=== PATIENT | male | born 1960 | race Caucasian/White ===

== ENCOUNTER 2023-11-29 17:36 | Inpatient (IN) | payer OTHER ==
[2023-11-29] MEDS ORDERED: TENECTEPLASE 50 MG/10 ML VIAL IV ONE (18:15)
[2023-11-29 18:19] LABS: Absolute Lymphocytes (CBC) 1.4 K/uL (0.7-4.9); Lymphocytes % 20.5 % (15.3-44.8); MCV 88.9 fL (80-100); MPV 7.4 fL (7.6-11.3); Platelets 311 thou/uL (152-406); RBC Red Blood Cell Count 4.39 M/uL (4.33-5.43)
--- NOTE | 2023-11-29 18:27 | RAD REPORT ---
EXAM DESCRIPTION: CT - Ct Stroke Brain Wo Cont - 11/29/2023 6:05 pm CLINICAL HISTORY: STROKE ALERT CVA symptomology COMPARISON: <Comparisons> TECHNIQUE: All CT scans are performed using dose optimization technique as appropriate and may inclu de automated exposure control or mA/KV adjustment according to patient size. FINDINGS: No intracranial hemorrhage, hydrocephalus or extra-axial fluid collection.No areas of brai n edema or evidence of midline shift. The paranasal sinuses and mastoids are clear. The calvarium is intact. IMPRESSION: No acute intracranial abnormality. The findings were discussed with Dr. Molina in the ER On 11/29/2023 at 5:50 p.m. by telephone.
--- NOTE | 2023-11-29 18:28 | RAD REPORT ---
EXAM DESCRIPTION: CT - Head angio - 11/29/2023 6:03 pm CLINICAL HISTORY: right facial droop Headache, drowsiness, CVA symptomology COMPARISON: <Comparisons> TECHNIQUE: CT angiography of the head was performed with MIPs. All CT scans are performed using dose optimization technique as appropriate and may include automated exposure control or mA/KV adjustment according to patient size. FINDINGS: No evidence of large vessel occlusion. No evidence of aneurysm is detected. No flow-limiti ng stenosis or vascular malformation identified. Antegrade flow is seen in the vertebral arteries. The right vertebral artery is mildly dominant. The visualized dural venous sinuses are patent. IMPRESSION: No significant flow abnormality is detected.
--- NOTE | 2023-11-29 18:31 | RAD REPORT ---
EXAM DESCRIPTION: CT - Neck Angio - 11/29/2023 6:03 pm CLINICAL HISTORY: right facial droop Headache, drowsiness, CVA symptomology COMPARISON: <Comparisons> TECHNIQUE: CT angiography of the neck vessels was performed with MIPs. All CT scans are performed using dose optimization technique as appropriate and may include automated exposure control or mA/KV adjustment according to patient size. FINDINGS: A left aortic arch is identified with normal three vessel configuration of the great vesse ls. No significant flow abnormality is seen of the common carotid bilaterally. Mild soft plaque is present left carotid bulb resulting in mild narrowing estimated at 0-49% based on NASCET criteria. Elsewhere, no significant flow abnormality detected. Normal flow is seen within both vertebral arteries. The right vertebral artery is mildly dominant. IMPRESSION: Mild narrowing of the left carotid bulb caused by soft plaquing. NASCET criteria used. Mild 0-49% stenosis Moderate 50-69% stenosis Severe 70-99% stenosis
--- NOTE | 2023-11-29 18:31 | RAD REPORT ---
EXAM DESCRIPTION: RAD - Chest Single View - 11/29/2023 6:04 pm CLINICAL HISTORY: right facial droop Chest pain. COMPARISON: <Comparisons> FINDINGS: Portable technique limits examination quality. The lungs are grossly clear. The heart is normal in size. No displaced fractures. IMPRESSION: No acute intrathoracic process suspected.
[2023-11-29 18:35] LABS: Potassium 4.2 mEq/L (3.5-5.1); Troponin High Sensitivity 6.7 pg/mL (<58.9)
[2023-11-29 18:38] LABS: Protime INR 1.03
--- NOTE | 2023-11-29 18:56 | ER ---
Nurse's Notes [facility] [place] Name: Chance Saldana Age: 63 yrs Sex: Male : 1960 Arrival Date: 11/29/2023 Time: 17:36 Bed 2 Private MD: Diagnosis: Acute CVA Presentation: 11/29 17:40 Chief complaint: Patient states: Right facial droop and decreased sensation to right aa5 side of face. Hx of previous CVA. 17:40 Onset of symptoms was November 29, 2023 at 16:15. aa5 17:40 Acuity: KERRY 2 aa5 17:40 Method Of Arrival: Wheelchair aa5 18:00 Coronavirus screen: At this time, the client does not indicate any symptoms associated aa5 with coronavirus-19. Ebola Screen: Patient denies travel to an Ebola-affected area in the 21 days before illness onset. An acute neurological deficit is present. Pre-hospital glucose is not applicable to this patient. Initial Sepsis Screen: Does the patient meet any 2 criteria? No. Patient's initial sepsis screen is negative. Does the patient have a suspected source of infection? No. Patient's initial sepsis screen is negative. 18:00 Risk Assessment: Do you want to hurt yourself or someone else? Patient reports no aa5 desire to harm self or others. Triage Assessment: 22:08 The onset of the patients symptoms was more than three but less than six hours ago. tl4 General: Appears in no apparent distress. Behavior is calm, cooperative. 22:09 The onset of the patients symptoms was November 29, 2023 at 14:00. Neuro: Reports tl4 numbness in right side of face. Stroke Activation: Symptom onset < 3 hours Physician: Stroke Attending; Name: ; Notified At: ; Arrived At: Physician: Chief Stroke Resident; Name: ; Notified At: ; Arrived At: Physician: Stroke Resident; Name: ; Notified At: ; Arrived At: Physician: ED Attending; Name: ; Notified At: ; Arrived At: Physician: ED Resident; Name: ; Notified At: ; Arrived At: Historical: - Allergies: 18:00 KETAMINE; aa5 18:00 cats/dogs; aa5 18:00 OPIOID ANALGESICS; aa5 - Home Meds: 22:53 Plavix 75 mg oral tablet 1 tab daily [Active]; Prednisone 7.5 mg Oral daily [Active]; tl4 tamsulosin 0.4 mg oral capsule 1 cap daily [Active]; cevimeline 30 mg oral capsule 1 cap 3 times per day [Active]; Lipitor 40 mg Oral tablet 1 tab every day at bedtime [Active]; Prilosec 40 mg Oral 2 times per day [Active]; Wellbutrin SR 150 mg Oral tablet, sustained-release 12 hr 1 tab 2 times per day [Active]; Humalog U-100 Insulin 100 unit/mL Sub-Q cartridge every time pt eats [Active]; Lantus U-100 Insulin 100 unit/mL Sub-Q solution 28 units at bedtime [Active]; - PMHx: 18:00 CVA; Type 1 diabetes mellitus; stage 4 melanoma; 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 - Social history:: Smoking status: Patient denies any tobacco usage or history of. - Family history:: not pertinent. Screenin:15 [facility] ED Fall Risk Assessment (Adult) History of falling in the last 3 months, aa5 including since admission No falls in past 3 months (0 pts) Confusion or Disorientation No (0 pts) Intoxicated or Sedated No (0 pts) Impaired Gait No (0 pts) Mobility Assist Device Used No (0 pt) Altered Elimination No (0 pt) Score/Fall Risk Level 0 - 2 = Low Risk Oriented to surroundings, Maintained a safe environment, Educated pt \T\ family on fall prevention, incl call for assistance when getting out of bed. Abuse screen: Denies threats or abuse. Nutritional screening: No deficits noted. Tuberculosis screening: No symptoms or risk factors identified. 19:35 Melvin Swallow Protocol Brief Cognitive Screen What is your name? Normal, Where are you rv right now? Normal, What year is it? Normal. Oral Mechanism Examination Facial Symmetry: Normal, Motion: Normal, Lip Closure: Normal, Oral Mechanism Result: Normal. 3 oz Water Swallow Challenge: Pt able to drink all water without stopping, coughing, choking or throat clearing: Yes Result: PASS Notified: Alexandro Molina MD. Assessment: 17:40 Reassessment: Code stroke called, transported pt via wheelchair to CT scan,accompanied aa5 [address] Dr[address] Molina and me. . 17:40 General: Appears comfortable, Behavior is calm, cooperative. Pain: Denies pain. Neuro: aa5 Level of Consciousness is awake, alert, obeys commands, Oriented to person, place, time, situation, Mobile Nurse are equal bilaterally Moves all extremities. Gait is steady, Speech is normal, Facial droop on right, Pupils are PERRLA. Cardiovascular: Heart tones S1 S2 present Rhythm is regular. Respiratory: Airway is patent Respiratory effort is even, unlabored, Respiratory pattern is regular, symmetrical. GI: Abdomen is round non-distended, Abd is soft and non tender X 4 quads. Patient currently denies nausea, vomiting. : No signs and/or symptoms were reported regarding the genitourinary system. EENT: No signs and/or symptoms were reported regarding the EENT system. Derm: Skin is pink, warm \T\ dry. Musculoskeletal: Range of motion: intact in all extremities. 17:40 VAN Scoring: Arm Drift: Patients demonstrates NO arm weakness. Patient is VAN Negative. aa5 Visual Disturbance: No visual disturbance noted. Aphasia: No aphasia noted. Neglect: No neglect noted. 18:00 Reassessment: Pt back from CT scan, placed on stretcher in ER 2 . aa5 18:15 TNKase (Tenecteplase) Screening: Indications: No evidence of intracranial hemorrhage or aa5 CT of head and no evidence of peripheral hemorrhage or recent CVA: Yes. Consent for thrombolytic therapy: Yes. 18:15 Neuro: Level of Consciousness is awake, alert, obeys commands, Oriented to person, aa5 place, time, situation, Mobile Nurse are equal bilaterally Moves all extremities. Speech is normal, Facial droop on right, Pupils are PERRLA. 18:50 Melvin Swallow Protocol Brief Cognitive Screen What is your name? Normal, Where are you aa5 right now? Normal, What year is it? Normal. Oral Mechanism Examination Facial Symmetry: Normal, Motion: Normal, Lip Closure: Normal, Oral Mechanism Result: Normal. 3 oz Water Swallow Challenge: Pt able to drink all water without stopping, coughing, choking or throat clearing: Yes Result: JOSR SELLERS Notified: Alexandro Molina MD. 19:05 Reassessment: No changes from previously documented assessment. Patient and/or family tl4 updated on plan of care and expected duration. Pain level reassessed. Patient is alert, oriented x 3, equal unlabored respirations, skin warm/dry/pink. Patient denies pain at this time. Vital Signs: 18:00 BP 148 / 87; Pulse 81; Resp 16 S; Temp 98(TE); Pulse Ox 99% on R/A; aa5 18:14 Weight 68.95 kg (M); aa5 18:22 BP 152 / 96; Pulse 78; Resp 18 S; Pulse Ox 99% on R/A; aa5 18:28 BP 135 / 94; Pulse 75; Resp 16 S; Pulse Ox 99% on R/A; aa5 18:33 BP 130 / 90; Pulse 78; Resp 16 S; Pulse Ox 98% on R/A; aa5 18:38 BP 129 / 87; Pulse 79; Resp 16 S; Pulse Ox 98% on R/A; aa5 18:43 BP 139 / 96; Pulse 83; Resp 18 S; Pulse Ox 98% on R/A; aa5 18:48 BP 115 / 76; Pulse 73; Resp 18 S; Pulse Ox 98% on R/A; aa5 18:53 BP 127 / 86; Pulse 77; Resp 18 S; Pulse Ox 100% on R/A; aa5 19:08 BP 141 / 89; Pulse 75; Resp 14; Pulse Ox 99% on R/A; tl4 19:23 BP 132 / 93; Pulse 73; Resp 14; Pulse Ox 99% on R/A; tl4 19:38 BP 129 / 89; Pulse 76; Resp 14; Pulse Ox 100% on R/A; tl4 19:53 BP 126 / 70; Pulse 80; Resp 16; Pulse Ox 98% on R/A; tl4 20:08 BP 131 / 88; Pulse 73; Resp 14; Pulse Ox 100% on R/A; Pain 0/10; tl4 20:23 BP 139 / 76; Pulse 79; Resp 18; Pulse Ox 97% on R/A; Pain 0/10; tl4 20:53 BP 126 / 86; Pulse 75; Resp 12; Pulse Ox 98% on R/A; Pain 8/10; tl4 21:23 BP 112 / 76; Pulse 78; Resp 12; Pulse Ox 97% on R/A; Pain 8/10; tl4 21:53 BP 109 / 69; Pulse 77; Resp 19; Pulse Ox 97% on R/A; tl4 22:23 BP 112 / 71; Pulse 78; Resp 16; Pulse Ox 97% on R/A; Pain 6/10; tl4 22:53 BP 123 / 68; Pulse 71; Resp 19; Pulse Ox 97% on R/A; Pain 6/10; tl4 23:23 BP 111 / 81; Pulse 79; Resp 18; Pulse Ox 97% on R/A; Pain 6/10; tl4 20:08 Pain Scale: Adult tl4 20:23 Pain Scale: Adult tl4 20:53 Pain Scale: Adult tl4 21:23 Pain Scale: Adult tl4 22:23 Pain Scale: Adult tl4 22:53 Pain Scale: Adult tl4 23:23 Pain Scale: Adult tl4 NIH Stroke Scale Scores: 17:40 NIHSS Score: 3 aa5 18:50 NIHSS Score: 3 aa5 19:08 NIHSS Score: 3 tl4 ED Course: 17:40 Patient arrived in ED. aa5 17:40 Arm band placed on. aa5 17:43 Triage completed. aa5 17:50 Alexandro Molina MD is Attending Physician. rt 17:50 Inserted saline lock: 22 gauge in right antecubital area, using aseptic technique. aa5 18:00 Placed in gown. Bed in low position. Call light in reach. Side rails up X2. aa5 18:00 Client placed on continuous cardiac and pulse oximetry monitoring. NIBP monitoring aa5 applied. 18:04 CT Stroke Brain w/o Contrast In Process Unspecified. EDMS 18:04 CT Head Angio In Process Unspecified. EDMS 18:04 CT Neck Angio In Process Unspecified. EDMS 18:06 Stroke CXR 1 View In Process Unspecified. EDMS 18:08 Initial lab(s) drawn, by me, sent to lab. Inserted saline lock: 20 gauge in left aa5 antecubital area, using aseptic technique. Blood collected. 18:27 EKG done, by ED staff, reviewed by Alexandro Molina MD. em1 18:55 Report given to Sd Luna RN. aa5 18:56 Mj Fisher MD is Hospitalizing Provider. rt 19:35 No provider procedures requiring assistance completed. tl4 19:46 Provided Education on: ED process. tl4 22:10 Patient admitted, IV remains in place. tl4 Administered Medications: 18:23 Drug: TNK FOR STROKE - Tenecteplase IV 0.25 mg/kg IV at per protocol once; MAX aa5 DOSE 25 mg, IVP over 5 seconds {Co-Signature: tl4 (Sd Adams).} {Note: given 17mg .} Route: IV; Rate: per protocol; Site: left antecubital; Medication: 19:35 VIS not applicable for this client. tl4 Point of Care Testing: Blood Glucose: 18:15 Blood Glucose: 245 mg/dL; aa5 Ranges: Outcome: 18:56 Decision to Hospitalize by Provider. rt 23:49 Admitted to ICU accompanied by nurse, via wheelchair, room 4, on monitor, with chart, tl4 Report called to Sofia Bhatia rn 23:49 Condition: good 23:49 Instructed on the need for admit, 23:50 Patient left the ED. rv NIH Stroke Scale - NIH Stroke Score Date: 11/29/2023 Time: 17:40 Total Score = 3 10. Dysarthria (speech clarity - read or repeat words) - 0(Normal) 11. Extinction and Inattention (visual/tactile/auditory/spatial/personal) - 0(No abnormality) 1a. Level of Consciousness (LOC) - 0(Alert) 1b. Level of Consciousness (LOC) (Month \T\ Age) - 0(Both) 1c. LOC Commands (Open \T\ Closes Eyes/Front Of House Manager) - 0(Both) 2. Best Gaze (Lateral Gaze Paresis) - 0(Normal) 3. Visual Field Loss - 0(No visual loss) 4. Facial Palsy - 2(Partial paralysis) 5a. Left Arm: Motor (10-second hold) - 0(No drift) 5b. Right Arm: Motor (10-second hold) - 0(No drift) 6a. Left Leg: Motor (5-second hold - always test supine) - 0(No drift) 6b. Right Leg: Motor (5-second hold - always test supine) - 0(No drift) 7. Limb Ataxia (finger/nose \T\ heel/king - test with eyes open) - 0(Absent) 8. Sensory Loss (pinprick arms/legs/face) - 1(Mild to moderate loss) 9. Best Language: Aphasia (description/naming/reading) - 0(No aphasia) Initials: aa5 NIH Stroke Scale - NIH Stroke Score Date: 11/29/2023 Time: 18:50 Total Score = 3 10. Dysarthria (speech clarity - read or repeat words) - 0(Normal) 11. Extinction and Inattention (visual/tactile/auditory/spatial/personal) - 0(No abnormality) 1a. Level of Consciousness (LOC) - 0(Alert) 1b. Level of Consciousness (LOC) (Month \T\ Age) - 0(Both) 1c. LOC Commands (Open \T\ Closes Eyes/Front Of House Manager) - 0(Both) 2. Best Gaze (Lateral Gaze Paresis) - 0(Normal) 3. Visual Field Loss - 0(No visual loss) 4. Facial Palsy - 2(Partial paralysis) 5a. Left Arm: Motor (10-second hold) - 0(No drift) 5b. Right Arm: Motor (10-second hold) - 0(No drift) 6a. Left Leg: Motor (5-second hold - always test supine) - 0(No drift) 6b. Right Leg: Motor (5-second hold - always test supine) - 0(No drift) 7. Limb Ataxia (finger/nose \T\ heel/king - test with eyes open) - 0(Absent) 8. Sensory Loss (pinprick arms/legs/face) - 1(Mild to moderate loss) 9. Best Language: Aphasia (description/naming/reading) - 0(No aphasia) Initials: aa5 NIH Stroke Scale - NIH Stroke Score Date: 11/29/2023 Time: 19:08 Total Score = 3 10. Dysarthria (speech clarity - read or repeat words) - 0(Normal) 11. Extinction and Inattention (visual/tactile/auditory/spatial/personal) - 0(No abnormality) 1a. Level of Consciousness (LOC) - 0(Alert) 1b. Level of Consciousness (LOC) (Month \T\ Age) - 0(Both) 1c. LOC Commands (Open \T\ Closes Eyes/Front Of House Manager) - 0(Both) 2. Best Gaze (Lateral Gaze Paresis) - 0(Normal) 3. Visual Field Loss - 0(No visual loss) 4. Facial Palsy - 1(Minor Paralysis) 5a. Left Arm: Motor (10-second hold) - 0(No drift) 5b. Right Arm: Motor (10-second hold) - 0(No drift) 6a. Left Leg: Motor (5-second hold - always test supine) - 0(No drift) 6b. Right Leg: Motor (5-second hold - always test supine) - 0(No drift) 7. Limb Ataxia (finger/nose \T\ heel/king - test with eyes open) - 0(Absent) 8. Sensory Loss (pinprick arms/legs/face) - 2(Severe to total loss) 9. Best Language: Aphasia (description/naming/reading) - 0(No aphasia) Initials: tl4 Signatures: Dispatcher [employer] EDDenzel Griffin em1 Tammi Schwarz, RN RN aa5 Veto Cedeno RN RN rv Alexandro Molina MD MD rt Logdahl, Sd tl4 Logdahl, Sd tl4 Corrections: (The following items were deleted from the chart) 18:38 17:40 Onset of symptoms was November 29, 2023 aa5 aa5 19:34 19:26 Melvin Swallow Protocol Exclusion Criteria: Brief Cognitive Screen tl4 tl4 19:34 19:31 Melvin Swallow Protocol Exclusion Criteria: tl4 tl4 23:05 18:03 Home Meds: Plavix Oral; aa5 tl4 23:57 23:49 Admitted to ICU accompanied by nurse, via wheelchair, room 4, on monitor, tl4 with chart, Report called to lashae subramanian rv
--- NOTE | 2023-11-29 18:56 | EDPHYS ---
Physician Documentation [facility] Name: Chance Saldana Age: 63 yrs Sex: Male : 1960 Arrival Date: 11/29/2023 Time: 17:36 Bed 2 Private MD: ED Physician Alexandro Molina HPI: 11/29 18:57 This 63 yrs old Male presents to ER via Wheelchair with complaints of Facial Droop. rt 18:57 Patient presents to the ED with concerns for acute CVA. He reports having a right-sided rt facial droop and right-sided numbness on his face. Reports mild numbness on his right arm. Denies other numbness, weakness. Patient had a brief episode of speech disturbance that has resolved. These are similar symptoms to when he had a prior stroke about 3 years ago. The patient first noticed the symptoms about 2 hours ago, however, his last known normal was 2 PM. Denies other acute complaints at this time, symptoms are moderate severity, no other aggravating or alleviating factors.. Historical: - Allergies: 18:00 KETAMINE; aa5 18:00 cats/dogs; aa5 18:00 OPIOID ANALGESICS; aa5 - Home Meds: 22:53 Plavix 75 mg oral tablet 1 tab daily [Active]; Prednisone 7.5 mg Oral daily [Active]; tl4 tamsulosin 0.4 mg oral capsule 1 cap daily [Active]; cevimeline 30 mg oral capsule 1 cap 3 times per day [Active]; Lipitor 40 mg Oral tablet 1 tab every day at bedtime [Active]; Prilosec 40 mg Oral 2 times per day [Active]; Wellbutrin SR 150 mg Oral tablet, sustained-release 12 hr 1 tab 2 times per day [Active]; Humalog U-100 Insulin 100 unit/mL Sub-Q cartridge every time pt eats [Active]; Lantus U-100 Insulin 100 unit/mL Sub-Q solution 28 units at bedtime [Active]; - PMHx: 18:00 CVA; Type 1 diabetes mellitus; stage 4 melanoma; 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 - Social history:: Smoking status: Patient denies any tobacco usage or history of. - Family history:: not pertinent. ROS: 18:57 Constitutional: Negative for fever, chills, and weight loss, Cardiovascular: Negative rt for chest pain, palpitations, and edema, Respiratory: Negative for shortness of breath, cough, wheezing, and pleuritic chest pain, Abdomen/GI: Negative for abdominal pain, nausea, vomiting, diarrhea, and constipation, MS/Extremity: Negative for injury and deformity, Skin: Negative for injury, rash, and discoloration, Psych: Negative for depression, anxiety, suicide ideation, homicidal ideation, and hallucinations, 18:57 Neuro: Positive for numbness, tingling, Exam: 18:57 Constitutional: This is a well developed, well nourished patient who is awake, alert, rt and in no acute distress. Head/Face: Normocephalic, atraumatic. Chest/axilla: Normal chest wall appearance and motion. Nontender with no deformity. No lesions are appreciated. Cardiovascular: Regular rate and rhythm with a normal S1 and S2. No gallops, murmurs, or rubs. Normal PMI, no JVD. No pulse deficits. Respiratory: Lungs have equal breath sounds bilaterally, clear to auscultation and percussion. No rales, rhonchi or wheezes noted. No increased work of breathing, no retractions or nasal flaring. Abdomen/GI: Soft, non-tender, with normal bowel sounds. No distension or tympany. No guarding or rebound. No evidence of tenderness throughout. Skin: Warm, dry with normal turgor. Normal color with no rashes, no lesions, and no evidence of cellulitis. MS/ Extremity: Pulses equal, no cyanosis. Neurovascular intact. Full, normal range of motion. Psych: Awake, alert, with orientation to person, place and time. Behavior, mood, and affect are within normal limits. 18:57 ECG was reviewed by the Attending Physician. 18:57 Neuro: Speech normal, right-sided facial droop sparing the forehead, right-sided numbness on the face, right arm, strength and sensation otherwise intact, Vital Signs: 18:00 BP 148 / 87; Pulse 81; Resp 16 S; Temp 98(TE); Pulse Ox 99% on R/A; aa5 18:14 Weight 68.95 kg (M); aa5 18:22 BP 152 / 96; Pulse 78; Resp 18 S; Pulse Ox 99% on R/A; aa5 18:28 BP 135 / 94; Pulse 75; Resp 16 S; Pulse Ox 99% on R/A; aa5 18:33 BP 130 / 90; Pulse 78; Resp 16 S; Pulse Ox 98% on R/A; aa5 18:38 BP 129 / 87; Pulse 79; Resp 16 S; Pulse Ox 98% on R/A; aa5 18:43 BP 139 / 96; Pulse 83; Resp 18 S; Pulse Ox 98% on R/A; aa5 18:48 BP 115 / 76; Pulse 73; Resp 18 S; Pulse Ox 98% on R/A; aa5 18:53 BP 127 / 86; Pulse 77; Resp 18 S; Pulse Ox 100% on R/A; aa5 19:08 BP 141 / 89; Pulse 75; Resp 14; Pulse Ox 99% on R/A; tl4 19:23 BP 132 / 93; Pulse 73; Resp 14; Pulse Ox 99% on R/A; tl4 19:38 BP 129 / 89; Pulse 76; Resp 14; Pulse Ox 100% on R/A; tl4 19:53 BP 126 / 70; Pulse 80; Resp 16; Pulse Ox 98% on R/A; tl4 20:08 BP 131 / 88; Pulse 73; Resp 14; Pulse Ox 100% on R/A; Pain 0/10; tl4 20:23 BP 139 / 76; Pulse 79; Resp 18; Pulse Ox 97% on R/A; Pain 0/10; tl4 20:53 BP 126 / 86; Pulse 75; Resp 12; Pulse Ox 98% on R/A; Pain 8/10; tl4 21:23 BP 112 / 76; Pulse 78; Resp 12; Pulse Ox 97% on R/A; Pain 8/10; tl4 21:53 BP 109 / 69; Pulse 77; Resp 19; Pulse Ox 97% on R/A; tl4 22:23 BP 112 / 71; Pulse 78; Resp 16; Pulse Ox 97% on R/A; Pain 6/10; tl4 22:53 BP 123 / 68; Pulse 71; Resp 19; Pulse Ox 97% on R/A; Pain 6/10; tl4 23:23 BP 111 / 81; Pulse 79; Resp 18; Pulse Ox 97% on R/A; Pain 6/10; tl4 20:08 Pain Scale: Adult tl4 20:23 Pain Scale: Adult tl4 20:53 Pain Scale: Adult tl4 21:23 Pain Scale: Adult tl4 22:23 Pain Scale: Adult tl4 22:53 Pain Scale: Adult tl4 23:23 Pain Scale: Adult tl4 NIH Stroke Scale Scores: 17:40 NIHSS Score: 3 aa5 18:50 NIHSS Score: 3 aa5 19:08 NIHSS Score: 3 tl4 MDM: 17:50 Patient medically screened. rt 18:57 Data reviewed: vital signs, nurses notes, lab test result(s), EKG, radiologic studies. rt Consideration of Admission/Observation Patient was admitted/placed on observation. Management of patient was discussed with the following: Hospitalist: Agrees to admit. I considered the following discharge prescriptions or medication management in the emergency department Medications were administered in the Emergency Department. See MAR. Independent interpretation of the following test(s) in the Emergency Department CT Scan: My interpretation is No intracranial hemorrhage seen on interpretation of CT scan images. Care significantly affected by the following chronic conditions: Diabetes. Counseling: I had a detailed discussion with the patient and/or guardian regarding the historical points, exam findings, and any diagnostic results supporting the discharge/admit diagnosis, lab results, radiology results, the need for further work-up and treatment in the hospital. Response to treatment: the patient's symptoms have mildly improved after treatment. 11/29 17:44 Order name: Basic Metabolic Panel [facility] 11/29 17:44 Order name: CBC with Diff [facility] 11/29 17:44 Order name: High Sensitivity Troponin [facility] 11/29 17:44 Order name: Protime (+inr) [facility] 11/29 17:44 Order name: Ptt, Activated [facility] 11/29 18:48 Order name: glucometer results - FOR PT WITH NO ID [facility] 11/29 19:03 Order name: Glucose, Ancillary Testing [facility] 11/29 19:25 Order name: CREATININE WHOLE BLOOD [facility] 11/29 20:28 Order name: Basic Metabolic Panel [facility] 11/29 20:28 Order name: Basic Metabolic Panel [facility] 11/29 20:28 Order name: CBC with Automated Diff [facility] 11/29 20:28 Order name: CBC with Automated Diff [facility] 11/29 20:28 Order name: Lipid Profile [facility] 11/29 20:28 Order name: Lipid Profile [facility] 11/29 17:44 Order name: CT Stroke Brain w/o Contrast; Complete Time: 18:32 11/29 17:44 Order name: Stroke CXR 1 View; Complete Time: 18:32 11/29 17:52 Order name: CT Head Angio; Complete Time: 18:32 11/29 17:52 Order name: CT Neck Angio; Complete Time: 18:32 11/29 17:44 Order name: EKG; Complete Time: 17:44 11/29 17:44 Order name: Accucheck; Complete Time: 18:26 11/29 17:44 Order name: Cardiac monitoring; Complete Time: 18:13 11/29 17:44 Order name: EKG - Nurse/Tech; Complete Time: 18:13 11/29 17:44 Order name: IV Saline Lock; Complete Time: 18:13 11/29 17:44 Order name: Labs collected and sent; Complete Time: 18:13 11/29 17:44 Order name: NPO; Complete Time: 18:14 11/29 17:44 Order name: O2 Per Protocol; Complete Time: 18:14 11/29 17:44 Order name: O2 Sat Monitoring; Complete Time: 18:26 11/29 17:44 Order name: Stroke Swallow Screen; Complete Time: 18:58 aa5 EC:57 Rate is 78 beats/min. Rhythm is regular, Normal Sinus Rhythm with No ectopy. QRS [place] rt is Normal. AR interval is normal. QRS interval is normal. QT interval is normal. No Q waves. T waves are Normal. No ST changes noted. Interpreted by me. Administered Medications: 18:23 Drug: TNK FOR STROKE - Tenecteplase IV 0.25 mg/kg IV at per protocol once; MAX aa5 DOSE 25 mg, IVP over 5 seconds {Co-Signature: tl4 (Sd Adams).} {Note: given 17mg .} Route: IV; Rate: per protocol; Site: left antecubital; Point of Care Testing: Blood Glucose: 18: Blood Glucose: 245 mg/dL; aa5 Ranges: Critical Glucose Levels:Adult <50 mg/dl or >400 mg/dl <40 mg/dl or >180 mg/dl Disposition Summary: 11/29/23 18:56 Hospitalization Ordered Notes: Hospitalization Status: Inpatient Admission rt Provider: Mj Fisher rt Location: Intensive Care Unit rt Condition: Fair rt Problem: new rt Symptoms: have improved rt Bed/Room Type: Standard rt Room Assignment: 4-(11/29/23 23:34) rv Diagnosis - Acute CVA rt Forms: - Medication Reconciliation Form rt - SBAR form rt - Leadership Thank You Letter rt Critical care time excluding procedures: 19:06 Critical care time: Bedside Care: 30 minutes, Consultation: 5 minutes. Total time: 35 rt minutes NIH Stroke Scale - NIH Stroke Score Date: 11/29/2023 Time: 17:40 Total Score = 3 10. Dysarthria (speech clarity - read or repeat words) - 0(Normal) 11. Extinction and Inattention (visual/tactile/auditory/spatial/personal) - 0(No abnormality) 1a. Level of Consciousness (LOC) - 0(Alert) 1b. Level of Consciousness (LOC) (Month \T\ Age) - 0(Both) 1c. LOC Commands (Open \T\ Closes Eyes/Fiber Optics Engineer) - 0(Both) 2. Best Gaze (Lateral Gaze Paresis) - 0(Normal) 3. Visual Field Loss - 0(No visual loss) 4. Facial Palsy - 2(Partial paralysis) 5a. Left Arm: Motor (10-second hold) - 0(No drift) 5b. Right Arm: Motor (10-second hold) - 0(No drift) 6a. Left Leg: Motor (5-second hold - always test supine) - 0(No drift) 6b. Right Leg: Motor (5-second hold - always test supine) - 0(No drift) 7. Limb Ataxia (finger/nose \T\ heel/king - test with eyes open) - 0(Absent) 8. Sensory Loss (pinprick arms/legs/face) - 1(Mild to moderate loss) 9. Best Language: Aphasia (description/naming/reading) - 0(No aphasia) Initials: aa5 NIH Stroke Scale - NIH Stroke Score Date: 11/29/2023 Time: 18:50 Total Score = 3 10. Dysarthria (speech clarity - read or repeat words) - 0(Normal) 11. Extinction and Inattention (visual/tactile/auditory/spatial/personal) - 0(No abnormality) 1a. Level of Consciousness (LOC) - 0(Alert) 1b. Level of Consciousness (LOC) (Month \T\ Age) - 0(Both) 1c. LOC Commands (Open \T\ Closes Eyes/Fiber Optics Engineer) - 0(Both) 2. Best Gaze (Lateral Gaze Paresis) - 0(Normal) 3. Visual Field Loss - 0(No visual loss) 4. Facial Palsy - 2(Partial paralysis) 5a. Left Arm: Motor (10-second hold) - 0(No drift) 5b. Right Arm: Motor (10-second hold) - 0(No drift) 6a. Left Leg: Motor (5-second hold - always test supine) - 0(No drift) 6b. Right Leg: Motor (5-second hold - always test supine) - 0(No drift) 7. Limb Ataxia (finger/nose \T\ heel/king - test with eyes open) - 0(Absent) 8. Sensory Loss (pinprick arms/legs/face) - 1(Mild to moderate loss) 9. Best Language: Aphasia (description/naming/reading) - 0(No aphasia) Initials: aa5 NIH Stroke Scale - NIH Stroke Score Date: 11/29/2023 Time: 19:08 Total Score = 3 10. Dysarthria (speech clarity - read or repeat words) - 0(Normal) 11. Extinction and Inattention (visual/tactile/auditory/spatial/personal) - 0(No abnormality) 1a. Level of Consciousness (LOC) - 0(Alert) 1b. Level of Consciousness (LOC) (Month \T\ Age) - 0(Both) 1c. LOC Commands (Open \T\ Closes Eyes/Fiber Optics Engineer) - 0(Both) 2. Best Gaze (Lateral Gaze Paresis) - 0(Normal) 3. Visual Field Loss - 0(No visual loss) 4. Facial Palsy - 1(Minor Paralysis) 5a. Left Arm: Motor (10-second hold) - 0(No drift) 5b. Right Arm: Motor (10-second hold) - 0(No drift) 6a. Left Leg: Motor (5-second hold - always test supine) - 0(No drift) 6b. Right Leg: Motor (5-second hold - always test supine) - 0(No drift) 7. Limb Ataxia (finger/nose \T\ heel/king - test with eyes open) - 0(Absent) 8. Sensory Loss (pinprick arms/legs/face) - 2(Severe to total loss) 9. Best Language: Aphasia (description/naming/reading) - 0(No aphasia) Initials: tl4 Signatures: Dispatcher [employer] EDTammi Ron RN RN aa5 Veto Cedeno RN RN rv Alexandro Molina MD MD rt Logdahl, Sd tl4 Logdahl, Sd tl4 Corrections: (The following items were deleted from the chart) 23:05 18:03 Home Meds: Plavix Oral; aa5 tl4 23:34 18:56 rt rv
[2023-11-29] MEDS ORDERED: ONDANSETRON 4 MG/2 ML VIAL IV PRN (20:23)
[2023-11-29] MEDS ORDERED: ACETAMINOPHEN 325 MG TABLET PO PRN (20:23)
--- NOTE | 2023-11-29 20:27 | P.HP ---
Certification for Inpatient Patient admitted to: Observation With expected LOS: <2 Midnights Practitioner: I am a practitioner with admitting privileges, knowledge of patient current condition, hospital course, and medical plan of care. Services: Services provided to patient in accordance with Admission requirements found in Title 42 Section 412.3 of the Code of Federal Regulations Patient History Date of Service: 11/30/23 Reason for admission: Stroke History of Present Illness: 63-year-old male patient was medical history significant for diabetes type 2, hyperlipidemia, history of CVA and wheeze on Plavix therapy who was brought to the ED because of complaint of weakness on the right side of the face and right lower extremity weakness. He had complaint of weakness and there was concern for stroke so he came to the ED. He was evaluated by ER physician and was deemed to be in the window for tenecteplase administration. Tenecteplase was given and patient had imaging studies that showed no acute intracranial process. He was admitted for observation post tenecteplase administration. At time of encounter patient denied overt episode of blurry vision, difficulty swallowing, difficulty with speech, falls, overt weakness in the right side of the body. Allergies ketamine Allergy (Verified 11/29/23 22:16) Anaphylaxis Penicillins Allergy (Verified 11/29/23 22:16) Hives/Rash Home Medications: Atorvastatin Calcium [Lipitor] 40 mg PO BEDTIME 11/29/23 Cevimeline HCl 30 mg PO TID 11/29/23 Clopidogrel Bisulfate [Plavix] 75 mg PO DAILY 11/29/23 Insulin Glargine,Hum.rec.anlog [Lantus] 28 units SQ BEDTIME 11/29/23 Insulin Lispro [Humalog] See Rx Instructions .ROUTE .COMPLEX 11/29/23 Omeprazole [Prilosec] 40 mg PO BID 11/29/23 Tamsulosin [Flomax] 0.4 mg PO DAILY 11/29/23 buPROPion HCl [Wellbutrin Sr] 150 mg PO BID 11/29/23 predniSONE [Prednisone] 7.5 mg PO DAILY 11/29/23 - Family History Mother -: Cancer Review of Systems General: Unremarkable Eyes: Unremarkable ENT: Unremarkable Respiratory: Unremarkable Cardiovascular: Unremarkable Gastrointestinal: Unremarkable Genitourinary: Unremarkable Musculoskeletal: Unremarkable Integumentary: Unremarkable Neurological: Weakness Lymphatics: Unremarkable Physical Examination - Physical Exam General: Alert, Oriented x3 HEENT: Atraumatic, Normocephalic Neck: Supple Respiratory: Normal air movement Cardiovascular: Regular rate/rhythm, Normal S1 S2 Gastrointestinal: Soft and benign Musculoskeletal: No swelling Neurological: Normal speech, Normal strength at 5/5 x4 extr, Sensation intact - Studies Laboratory Data (last 24 hrs) 11/29/23 11/29/23 11/29/23 18:08 18:08 18:08 WBC 6.80 Hgb 13.6 Hct 39.0 L Plt Count 311 PT 11.3 INR 1.03 APTT 33.3 Sodium 133 L Potassium 4.2 BUN 11 Creatinine 0.93 Glucose 250 H Assessment and Plan - Plan TIA/CVA: Patient did have episode of previous strokes however there was no overt neurologic deficit. Imaging study done while admitted had no acute intracranial process with a CTA of the head and neck and CT of the brain. Will complete workup with echocardiogram and consider MRI of the brain. He is status post tenecteplase administration. Will continue every 2 hours neurochecks. Continue outpatient Plavix for anticoagulation. We will follow clinical symptomatology and obtain lipid panel to assess adequacy of statin therapy. Neurologist to evaluate patient. Diabetes type 2: Will continue patient on sliding scale insulin for glucose control and continue outpatient insulin dose. Carb restricted diet to be continued. Hyperlipidemia: Will obtain lipid panel to assess adequacy of statin therapy and continue outpatient statin dose. Prophylaxis: Patient will be continued on SCDs for DVT prophylaxis in view of recent tenecteplase administration. Plavix to be continued for antiplatelet therapy. CODE STATUS: Full code. Disposition: We will complete stroke workup and will be discharged once cleared by neurology service. Discharge Plan: Home - Advance Directives Does patient have a Living Will: No Does patient have a Durable POA for Healthcare: No
[2023-11-29] MEDS ORDERED: ACETAMINOPHEN 325 MG TABLET ONE (23:26)
[2023-11-29] MEDS: INSULIN REGULAR (HUMAN) 100 UNIT/ML SQ SCH (23:50)
[2023-11-30 02:07] VITALS: O2SAT 97
[2023-11-30] MEDS ORDERED: NA CHLORIDE 0.9% 1,000 ML ONE ×2 (02:35→11:25)
[2023-11-30] MEDS: NA CHLORIDE 0.9% 1,000 ML IV SCH ×2 (02:44→07:53)
[2023-11-30 07:00] LABS: Absolute Lymphocytes (CBC) 1.5 K/uL (0.7-4.9); MCV 89.1 fL (80-100); Platelets 260 thou/uL (152-406)
[2023-11-30 07:23] LABS: Potassium 4.1 mEq/L (3.5-5.1)
[2023-11-30] MEDS: INSULIN REGULAR (HUMAN) 100 UNIT/ML SQ SCH ×4 (07:30→20:00)
[2023-11-30] MEDS ORDERED: INSULIN REGULAR (HUMAN) 100 UNIT/ML ONE (07:36)
[2023-11-30] MEDS ORDERED: CLOPIDOGREL 75 MG TABLET ONE (07:46)
[2023-11-30] MEDS ORDERED: TAMSULOSIN 0.4 MG SR CAP ONE (07:46)
[2023-11-30] MEDS: PANTOPRAZOLE 40MG TABLET PO SCH ×2 (07:52→16:18)
[2023-11-30] MEDS: BUPROPRION HCL S.R. 150MG TAB PO SCH ×2 (07:53→20:00)
[2023-11-30] MEDS ORDERED: ENOXAPARIN 40 MG/0.4 ML SQ SCH (09:00)
[2023-11-30] MEDS ORDERED: TAMSULOSIN 0.4 MG SR CAP PO SCH (09:00)
[2023-11-30] MEDS ORDERED: predniSONE 5 MG TAB PO SCH (09:00)
[2023-11-30] MEDS ORDERED: CLOPIDOGREL 75 MG TABLET PO SCH (09:00)
[2023-11-30] MEDS: CEVIMELINE HCL 30 MG PO SCH ×3 (09:00→20:00)
[2023-11-30 09:51] LABS: Blood Morphology Comment NOT SEEN (NOT SEEN); Platelet Estimate ADEQ; White Blood Cell Scan OK (OK)
--- NOTE | 2023-11-30 10:20 | RAD REPORT ---
EXAM DESCRIPTION: MRI - Brain Wo Cont - 11/30/2023 10:14 am CLINICAL HISTORY: CVA Headache, drowsiness, CVA symptomology Send COMPARISON: <Comparisons> TECHNIQUE: Multi-sequence, multiplanar MR imaging of the brain was performed without contrast. FINDINGS: No intracranial hemorrhage, hydrocephalus or extra-axial fluid collections.Mild T2 and FLA IR hyperintensity in the periventricular and deep white matter likely chronic microvascular ischemic changes. No edema or shift of midline structures. No findings to suspect brain mass. DWI is negative for acute CVA. Midline structures are normally formed. Mastoid air cells and paranasal sinuses are clear. IMPRESSION: Negative for acute CVA or other acute intracranial process.
[2023-11-30] MEDS ORDERED: PANTOPRAZOLE 40MG TABLET PO ONE (16:16)
--- NOTE | 2023-11-30 19:53 | RAD REPORT ---
EXAM DESCRIPTION: CT - Head Brain Wo Cont - 11/30/2023 6:46 pm CLINICAL HISTORY: S/P TNK COMPARISON: Head angio dated 11/29/2023; Ct Stroke Brain Wo Cont dated 11/29/2023 TECHNIQUE: Noncontrast head CT images were obtained without IV contrast. Multiplanar reformats were generated and reviewed. All CT scans are performed using dose optimization technique as appropriate and may include automated exposure control or mA/KV adjustment according to patient size. FINDINGS: No intracranial hemorrhage, mass, or edema. Midline structures are unremarkable. Normal ventricular caliber for age. Mcintosh-white matter differentiation is preserved, without evidence of acute infarct. No abnormal extra- axial fluid collections. Mastoid air cells and visualized portions of the paranasal sinuses are clear. No acute bony findings. IMPRESSION: No evidence of an acute intracranial process.
--- NOTE | 2023-11-30 20:03 | CON ---
Reason For Consultation: Consultation was called because of possible stroke. History Of Present Illness: Mr. Saldana is a 63-year-old right-handed patient who is curr ently on immune mediated therapy for cancer and who had a chronic stroke 3 years ago with very little residual right-sided weakness and developed weakness of the right face with some sensory deficits in the face and the arm along with weakness in the arm and came to [facility] within 2 hours o f onset of his symptoms. After his arrival at 1736, he was evaluated, had a negative head CT scan an d had no contraindications to TNKs and was given TNKs. He did have a negative head CT scan. CT danielle ogram of the head and neck showed no significant flow abnormalities. The patient's symptoms per his who is in the room and the patient is he has somewhat returned in terms of his sensation and rig ht facial weakness towards baseline, which was present after his first stroke, but they are still not symmetric and he still does not have full return of sensation in the right face. He was a brain MRI done earlier today. It showed no acute ischemic or hemorrhagic changes, but showed small vessel isc hemic disease identified as mild in deep periventricular and deep white matter. Blood work revealed a completely normal complete blood count with differential. His coagulation panel was normal. Basic metabolic panel normal except blood sugars were elevated ranging from 176 to 250, calcium low at 8.4 . His LDL cholesterol 91, HDL 53, total cholesterol 164, triglyceride 102. His cholesterol HDL rati o 3.09. Chest x-ray showed no acute intrathoracic processes. Past Medical History: Dyslipidemia, diabetes mellitus poorly controlled, prostate hypertrophy, and h e is on immune therapy for cancer. Allergies: KETAMINE AND PENICILLIN. Medications: At home, Lipitor 40 mg at bedtime, cevimeline hydrochloride 30 mg 3 times daily, Plavix 75 mg daily, glargine insulin that is Lantus 28 units subcu at bedtime, lispro or Humalog insulin pe r sliding scale, Prilosec 40 mg twice daily, Flomax 0.4 mg daily, Wellbutrin 150 mg twice daily, pred nisone 7.5 mg daily. Family History: Positive for cancer in mother. Past Surgical History: Not documented. Review of Systems: Aside from mentioned, he denies any recent fevers, chills, nausea, vomiting, myalgias, arthralgias, r mathew, headache, weight change, although he has had some difficulty controlling blood sugars and at [facility] blood sugars will be up to 400 per his rarely, more from 200 to 300. Hemoglobin A1c was as e levated as 9, recent was 7.9. Physical Examination: Vital Signs: Blood pressure 126/80, pulse 85, respiratory rate 16, temperature 97.8, oxygen saturati on 99% to 100% on room air. Weight 180 pounds, height 5 feet 2 inches, BMI 32.9. General: MR. Saldana is sitting in a chair beside bed. HEENT: He is normocephalic, atraumatic. Sclerae anicteric. Oropharynx pink, moist. Neck: Supple. Chest: Clear. Heart: Regular. Extremities: Show no clubbing, cyanosis, or edema. Neurologic: Alert and oriented to situation, place, person. He has good verbal fluency. No signifi cant difficulty with labial, lingual, or guttural sounds. He does have a slight decrease of the righ t nasolabial fold with good excursions on smiling. Slightly weak right eye closure and corner of the mouth on the right also slightly weak as compared to the left side. He has decreased sensation to t ouch and temperature in the right upper, middle, and lower face compared to the left. He has a signi ficant decrease in sensation in the right hand, forearm, and arm compared to the left side. Sensory exam intact in the right and left in the lower extremities. Motor exam subtle weakness, 4+ in the ri ght upper, proximal, and distal extremity compared to the left side, it was 5/5. In the lower extrem ity, 5/5 proximally and distally. Coordination intact of lower extremities. Reflexes 2+ on the righ t, 1 on the left upper extremity, 2+ patellae. Coordination intact in upper and lower ext remities. Gait; good stance, right arm swing. Assessment: Mr. Saldana is a 63-year-old patient with a clinical stroke. MRI is negative so far. He did receive TNKs and potentially the reason for no obvious findings on MRI, but he still has some persistent weakness. It is unclear if this is at baseline from his prior stroke 3 years ago. His un controlled blood sugars and cholesterol panel appears to be fairly good. Blood pressures are normote nsive. He has comorbid cancer and potentially places him in a hypercoagulable state. Given that he was on Plavix while the stroke occurred, may be considered failure of Plavix and therefore aspirin ma y be added to Plavix. Plan: 1.Folic acid 1 mg daily. 2.Plavix 75 mg daily. 3.Aspirin 81 mg daily. 4.Continue Lipitor may go to 80 mg at bedtime. 5.Wellbutrin 150 mg twice daily. 6.Continue with simply insulin and more aggressive sliding scale. The patient does have the continu ous glucose monitoring, but he is not following the sliding scale per his and likely resulting i n very elevated blood sugars. He did say that prior to the onset of this event, his blood sugars wer e around 400. 7.Continue Flomax. 8.Patient will be discharged home and he is from out of town. He will follow up with his neurologis t out of town. DANIELA/TAMERA Voice ID: [id number] Report ID: [id number]
[2023-11-30 20:52] VITALS: BP 125/96; TEMP 98.1
[2023-11-30] MEDS ORDERED: ATORVASTATIN 80 MG TAB PO SCH (21:00)
[2023-11-30] MEDS ORDERED: INSULIN GLARGINE 100 UNIT/ML SQ SCH (21:00)
[2023-11-30] MEDS ORDERED: ATORVASTATIN 40 MG TAB PO SCH (21:00)
[2023-12-01] MEDS ORDERED: ASPIRIN EC 325 MG TABLET PO SCH (09:00)
== END 2023-11-30 20:20 | disposition home or self-care (01) | DRG 63 ==
LOC: ER 17:36 → ERHOLD 20:49 → 3RD-ICU 23:47
PROVIDERS: ADMIT Internal Medicine Nephrology; ATTEND Hospitalist
DX: I63.9 Cerebral infarction, unspecified (principal); E78.5 Hyperlipidemia, unspecified; E11.9 Type 2 diabetes mellitus without complications; G83.11 Monoplegia of lower limb affecting right dominant side; R29.810 Facial weakness; R29.703 NIHSS score 3; R20.0 Anesthesia of skin; Z79.4 Long term (current) use of insulin; Z88.0 Allergy status to penicillin; Z88.5 Allergy status to narcotic agent; Z88.8 Allergy status to other drugs, medicaments and biological substances; Z79.02 Long term (current) use of antithrombotics/antiplatelets; Z79.52 Long term (current) use of systemic steroids; Z79.899 Other long term (current) drug therapy
CPT/HCPCS: 36415; 70450; 70496; 70498; 70551; 71045; 80048; 80061; 82565; 82947; 84484; 85025; 85610; 85730; 92610; 92977; 93005; 96374; 97112; 97161; 99291; J1815; J3101; J7030; J7512; Q9967